=== PATIENT | female | born 1955 | race Caucasian/White ===

== ENCOUNTER → 2023-10-02 07:57 | Outpatient (REF) | payer MEDICARE, OTHER, SELFPAY | LOC: RAD 07:57 | PROVIDERS: ATTENDING PHYSICIAN Surgery; FAMILY PHYSICIAN Family Medicine | DX: K43.9 Ventral hernia without obstruction or gangrene (principal) | CPT/HCPCS: 74177; Q9967 ==

== ENCOUNTER 2023-11-25 08:59 | Emergency (ER) | payer MEDICARE, OTHER, SELFPAY ==
[2023-11-25 09:01] VITALS: BP 137/90
--- NOTE | 2023-11-25 09:06 | ED.GENMED ---
History of Present Illness
<Annabel German PA-C - Last Filed: 11/25/23 17:36>
General
Chief Complaint: Headache
Source: patient
Exam Limitations: none
Time Seen by Provider: 11/25/23 09:04
Nursing documentation reviewed up to this point in time: agreed with
History of Present Illness
History of Present Illness:
Patient is a 68-year-old female with history of migraine, hypothyroid presenting to the emergency department for evaluation of headache. Patient states migraine started approximately 8 days ago. She reports it is a throbbing/stabbing pain in her
left frontal region/forehead. Pain has been constant since onset. Patient denies any associated double vision/visual changes, fever, neck pain, dizziness, ataxia. No nausea/vomiting. No photophobia.
Patient states quality of headache is exactly similar to her typical pattern of migraines. She receives Aimovig injections monthly, takes topiramate daily, Imitrex as needed. None of these have been successful in treating his breakthrough migraine.
She does follow with Dr. Ford as neurologist. She states over the past year she has been having increase in breakthrough migraines and has follow-up appointment scheduled neurology in January. Typically�her breakthrough migraines are treated
with a few days of steroids although she states she cannot have steroids at this time due to her recent COVID-vaccine.
Does report significant stress over the past 2 weeks as her sister recently .
Review of Systems
<Annabel German PA-C - Last Filed: 11/25/23 17:36>
Review of Systems
Allergies reviewed?: Yes
All Other Systems: ROS reviewed and negative except as documented in HPI and ROS
Phy Exam
<Annabel German PA-C - Last Filed: 11/25/23 17:36>
Physical Exam
Physical Exam:
Vitals: Patient's vital signs are stable. Afebrile
General: Patient is well appearing, no acute distress. Nontoxic appearing
Skin: Warm and dry, no rashes or lesions
Head: Normocephalic, atraumatic. No tenderness over bilateral temporal arteries. No tenderness to TMJ.
Eyes: Sclera nonicteric. EOMs intact. Pupils equal round and reactive to light bilaterally. No nystagmus.
Throat: Protecting airway
Neck: Normal ROM, no cervical spine tenderness, no meningismus
Cardiac: Regular rate and rhythm, no murmurs.
Pulm: Normal respiratory effort, no wheezes, rales, rhonchi heard on exam.
Abdomen: No abdominal tenderness.
Extremities: No evidence of cyanosis or edema. Great distal pulses
Neuro: AAOx3. CN II-XII intact. No focal neurologic deficits. Fluid speech. Sensation fully intact. Strength 5 out of 5 in upper and lower extremities
Psychiatric: Normal affect.
Course
<Annabel German PA-C - Last Filed: 11/25/23 17:36>
Orders/Labs/Results
Orders:
Orders
11/25/23 09:28
0.9% Sodium Chloride 1000 ml [Nss] 1,000 ml IV BOLUS
Diphenhydramine [Benadryl] 25 mg IV NOW STA
Metoclopramide [Reglan] 10 mg IV NOW STA
11/25/23 09:33
Basic Metabolic Panel Urgent
COVID-19 Antigen Urgent
Source: Nasal Swab
Complete Blood Count/With Diff Urgent
11/25/23 09:55
Magnesium Sulfate 2 Gram/50 ml [Magnesium Sulfate] 2 gram in 50 ml IV NOW
Ondansetron Injectable [Zofran] 4 mg IV NOW STA
Abnormal Lab Results
11/25/23
09:33
WBC 3.1 L 10^3/uL
(4.8-10.8)
Absolute Neuts (auto) 1.1 L 10^3/uL
(1.4-6.5)
Immature Gran % 0.6 H %
(0-0.5)
Neutrophils % 34.7 L %
(42.2-75.2)
Monocytes % 15.2 H %
(1.7-9.3)
Sodium 147 H mmol/L
(135-145)
Chloride 108 H mmol/L
(98-107)
BUN 21 H mg/dl
(7-17)
Creatinine 1.1 H mg/dL
(0.6-1.0)
Glucose 124 H mg/dl
(70-99)
11/25/23 09:33
11/25/23 09:33
Vital Signs
Initial and Last Documented VS:
Initial Vital Signs
Temp Pulse Resp BP Pulse Ox
98.3 F 92 18 137/90 90
11/25/23 09:01 11/25/23 09:01 11/25/23 09:01 11/25/23 09:01 11/25/23 09:01
Last Documented Vital Signs
Temp Pulse Resp BP Pulse Ox
98.3 F 74 16 136/84 96
11/25/23 09:01 11/25/23 10:09 11/25/23 10:09 11/25/23 09:12 11/25/23 10:09
<Johnny Khan MD - Last Filed: 11/25/23 14:51>
Orders/Labs/Results
Orders:
Orders
11/25/23 09:28
0.9% Sodium Chloride 1000 ml [Nss] 1,000 ml IV BOLUS
Diphenhydramine [Benadryl] 25 mg IV NOW STA
Metoclopramide [Reglan] 10 mg IV NOW STA
11/25/23 09:33
Basic Metabolic Panel Urgent
COVID-19 Antigen Urgent
Source: Nasal Swab
Complete Blood Count/With Diff Urgent
11/25/23 09:55
Magnesium Sulfate 2 Gram/50 ml [Magnesium Sulfate] 2 gram in 50 ml IV NOW
Ondansetron Injectable [Zofran] 4 mg IV NOW STA
Abnormal Lab Results
11/25/23
09:33
WBC 3.1 L 10^3/uL
(4.8-10.8)
Absolute Neuts (auto) 1.1 L 10^3/uL
(1.4-6.5)
Immature Gran % 0.6 H %
(0-0.5)
Neutrophils % 34.7 L %
(42.2-75.2)
Monocytes % 15.2 H %
(1.7-9.3)
Sodium 147 H mmol/L
(135-145)
Chloride 108 H mmol/L
(98-107)
BUN 21 H mg/dl
(7-17)
Creatinine 1.1 H mg/dL
(0.6-1.0)
Glucose 124 H mg/dl
(70-99)
11/25/23 09:33
11/25/23 09:33
Vital Signs
Initial and Last Documented VS:
Initial Vital Signs
Temp Pulse Resp BP Pulse Ox
98.3 F 92 18 137/90 90
11/25/23 09:01 11/25/23 09:01 11/25/23 09:01 11/25/23 09:01 11/25/23 09:01
Last Documented Vital Signs
Temp Pulse Resp BP Pulse Ox
98.3 F 74 16 136/84 96
11/25/23 09:01 11/25/23 10:09 11/25/23 10:09 11/25/23 09:12 11/25/23 10:09
<Annabel German PA-C - Last Filed: 11/25/23 17:36>
MDM/Problems Addressed
Differential Diagnosis Includes:
Not limited to: Breakthrough migraine, cluster headache, tension headache, viral illness, electrolyte
MDM/Problems Addressed:
68-year-old female presenting with intractable breakthrough migraine for the past week. No associated fever, visual changes, dizziness, ataxia, nausea/vomiting. Typical to migraine pattern. Vital signs are stable. Patient is afebrile. Physical
exam as above. Patient is well-appearing, conversational and nontoxic. Cardio/pulmonary assessment unremarkable. Patient has no focal neurologic findings or cranial nerve deficits on exam. No meningeal signs. Patient has excellent sensation and
great strength in bilateral upper and lower extremities. Will check basic lab and COVID. Given patient presents with her typical migraine pattern and without any neurologic changes�no indication for CT imaging at this time. Will treat
symptomatically with fluids, Reglan/Benadryl and reassess.
Chronic conditions affecting care:
Migraine
Acute Exacerbation and/or Progression of Chronic Illness:
Acute migraine
<Annabel German PA-C - Last Filed: 11/25/23 17:36>
*Pulse Oximetry
Patient hypoxic: no
*EKG
Interpreted by ED Provider?: NA
*Solder Technician Interpretation
Rate: Solder Technician- N/A
*Critical Care Note
Total Time (30-74mins, 75-104mins- exclusive of procedures): Not Applicable
<Annabel German PA-C - Last Filed: 11/25/23 17:36>
Update Note
Update Note:
Update 9:56 AM: Patient reports mild nausea following Reglan. Will give Zofran. Will add 2 g IV magnesium.
Update 10:55 AM: Labs reviewed. Mild leukopenia�possibly viral in nature although COVID-negative. Signs of dehydration on labs. Did advise patient to have labs rechecked with primary care doctor to ensure trending correctly. Patient did receive
a liter of fluids. Patient was up walking to the bathroom with steady gait. She states her headache is essentially gone. Symptoms consistent with migraine headache. Patient stable for discharge with close return precautions. Recommended to
continue medications as prescribed and follow-up with primary care/neurology. Patient comfortable with plan. All questions answered. Patient seen with attending physician.
ED Attending Note
<Annabel German PA-C - Last Filed: 11/25/23 17:36>
-
Portions of this chart may have been created with voice recognition software.� Occasional wrong word or��sound alike� substitutions may have occurred due to the inherent limitations of voice recognition software.
<Johnny Khan MD - Last Filed: 11/25/23 14:51>
ED Attending Note
Patient seen and examined by attending physician: Yes
ED Attending Note:
I have seen and evaluated the patient with a [id number] encounter. I have spoken to the advance practicer provider and involved in the medical history, the physical exam, medical decision making.
Evaluation and management service: agree unless noted differently below.
Results interpretation: agree unless noted differently below.
Focused HPI: 68-year-old female presents to the emergency room for evaluation of 'migraine.' Patient reports that for the past week she has had intermittent left-sided headache consistent with her prior migraines. She has not had improvement with
Tylenol; she says that she typically receives steroids for migraines but recently received COVID-vaccine and was told by her son who is an parts product analyst that she should avoid steroids. Came to the ER for assessment. Denies any vomiting, neck pain
or stiffness, fevers, chills or neurologic symptoms.
Physical exam: Awake alert not in distress. Vital signs normal. Neck supple. Head atraumatic. Cranial nerves intact 2 through 12, speech fluid no dysarthria or aphasia. No limb ataxia. Motor and sensory function intact in all extremities.
Medical Decision Makin-year-old female presents with one of her typical migraines. Typically receives steroids but was advised not to in the setting of recent vaccinations. Vitals and exam as above. She had screening labs which showed no
clinically significant values. My judgment no indication for emergent head imaging at this point�she does have symptoms of very much in line with her typical migraines. She was treated symptomatically with Reglan, Benadryl, magnesium, fluids and
headache resolved. Stable for discharge.
Discharge Plan
Departure
Patient Disposition: Home (Routine Discharge)
Date of Disposition: 11/25/23
Time of Disposition: 10:57
Patient with high blood pressure during this ER visit?: Yes
Condition: Good
Covid-19: Negative COVID-19
Discharge Problem:
Migraine
Instructions: Migraines (DC), BLOOD PRESSURE
Prescriptions:
No Action
Aimovig Autoinjector
1 dose IM PRN PRN (Reason: migraines)
atorvastatin 10 mg Tablet
10 mg PO DAILY
venlafaxine 150 mg Capsule,Extended Release 24hr
150 mg PO DAILY
levothyroxine [Synthroid] 150 mcg Tablet
150 mcg PO DAILY
Flonase
2 spray inhalation DAILY
Probiotic
1 cap PO DAILY
Symbicort
1 puff inhalation DAILY
Vitamin D3
1 cap PO DAILY
topiramate [Topamax] 25 mg Tablet
25 mg PO HS
topiramate [Topamax] 50 mg Tablet
50 mg PO DAILY
hydromorphone 2 mg tablet
2 mg PO Q6H PRN (Reason: pain) Qty: 6 0RF
Referrals:
Faustino Desai MD [Family Provider] - Follow up in 5-7 days
Activity Restrictions/Additional Instructions:
RETURN TO THE EMERGENCY DEPARTMENT WITH ANY FEVERS, VISION CHANGES, INTRACTABLE HEADACHE, NAUSEA/VOMITING, SIGNS OF SEVERE DEHYDRATION, ALTERED MENTAL STATUS, WORSENING IN CURRENT SYMPTOMS, OR ANY OTHER CONCERNS
-You should continue to take your medications as prescribed for migraines. Take Tylenol as needed, in addition for headache. It is important to stay well-hydrated.
-Follow-up with your primary care doctor for repeat lab work and to ensure that values normalized.
-Follow-up with your neurologist for further evaluation/management.
Monitor your symptoms closely and return to the emergency department any acute worsening/new symptoms
Interventions
Interventions:
*Risk Screen - Suicide Last Done: 11/25/23 09:01
*General Assessment Last Done: 11/25/23 09:01
*Neglect/Abuse Screening Last Done: 11/25/23 09:01
*Nursing Disposition Last Done: 11/25/23 11:29
ED- Neurological Assessment Last Done: 11/25/23 09:32
Discharge Date and Time
Discharge Date/Time: 11/25/23 11:29
Print Language: CUBAN
[2023-11-25 09:12] VITALS: BP 136/84
[2023-11-25 09:31] VITALS: BMI 20.5
[2023-11-25] MEDS: REGLAN 10 MG IV (09:39)
[2023-11-25] MEDS: NSS 1000 IV (09:40)
[2023-11-25] MEDS: BENADRYL 25 MG IV (09:40)
[2023-11-25 09:59] LABS: % Basophils 1.6 % (0-2); % Eosinophils 4.5 % (0-6); % Immature Granulocytes 0.6 % (0-0.5); % Lymphocytes 43.4 % (20.5-51.1); % Monocytes 15.2 % (1.7-9.3); % Neutrophils 34.7 % (42.2-75.2); Absolute Basophils 0.1 10^3/uL (0-0.2); Absolute Eosinophils 0.1 10^3/uL (0-0.7); Absolute Lymphocytes 1.3 10^3/uL (1.2-3.4); Absolute Monocytes 0.5 10^3/uL (0.1-0.6); Absolute Neutrophils 1.1 10^3/uL (1.4-6.5); Hematocrit 37.9 % (37.0-47.0); Hemoglobin 13.1 g/dL (12.0-16.0); Mean Corp Hgb Conc. 34.6 g/dL (33.0-37.0); Mean Corpuscular Hgb 29.9 pg (27.0-31.0); Mean Corpuscular Volume 86.5 fL (81.0-99.0); Mean Platelet Volume 9.2 fL (7.4-10.4); Nucleated Red Blood Cells % 0 %; Platelet Count 229 10^3/uL (130-400); Red Blood Cell Count 4.38 10^6/uL (4.20-5.40); Red Cell Dist. Width 11.8 % (11.5-14.5); White Blood Cell Count 3.1 10^3/uL (4.8-10.8)
[2023-11-25] MEDS: ZOFRAN 4 MG IV (10:04)
[2023-11-25] MEDS: MAGNESIUM SULFATE 50 IV (10:04)
[2023-11-25 10:08] LABS: Blood Urea Nitrogen 21 mg/dl (7-17); Calcium 9.5 mg/dl (8.4-10.2); Carbon Dioxide 28 mmol/L (22-30); Chloride 108 mmol/L (98-107); Estimated Creatinine Clearance 45 ml/min; Glucose 124 mg/dl (70-99); Potassium 4.9 mmol/L (3.5-5.1); Sodium 147 mmol/L (135-145); eGFR 55.07
[2023-11-25 10:15] LABS: COVID-19 Antigen Negative (Negative)
== END 2023-11-25 11:29 | disposition home or self-care (01) ==
LOC: EMR 08:59
PROVIDERS: Physician Assistant; EMERGENCY PHYSICIAN Emergency Medicine; FAMILY PHYSICIAN Family Medicine
DX: G43.909 Migraine, unspecified, not intractable, without status migrainosus (principal); E03.9 Hypothyroidism, unspecified; Z11.52 Encounter for screening for COVID-19; Z79.899 Other long term (current) drug therapy
CPT/HCPCS: 99283; 96365; 96375; 80048; 85025; 87811

== ENCOUNTER → 2024-11-22 12:27 | Outpatient (REF) | payer MEDICARE, OTHER, SELFPAY | LOC: EMG 12:27 | PROVIDERS: ATTENDING PHYSICIAN Psychiatry & Neurology Neurology; FAMILY PHYSICIAN Family Medicine | DX: M79.601 Pain in right arm (principal); R20.0 Anesthesia of skin; G56.01 Carpal tunnel syndrome, right upper limb | CPT/HCPCS: 95886; 95909 ==